=== PATIENT | male | born 1980 | race Caucasian/White ===

== ENCOUNTER 2023-08-30 14:41 | Inpatient (IN) | payer OTHER ==
[2023-08-30 15:14] VITALS: BMI 21.2
[2023-08-30] MEDS ORDERED: LOPERAMIDE HCL 2 MG CAPSULE PO PRN (16:12)
[2023-08-30] MEDS ORDERED: POLYETHYLENE GLYCOL (HEALTHYLAX) 3350 17 GM PACKET PO PRN (16:12)
[2023-08-30] MEDS ORDERED: METHOCARBAMOL 500 MG TABLET PO PRN (16:12)
[2023-08-30] MEDS ORDERED: BENZONATATE 200 MG CAPSULE PO PRN (16:12)
[2023-08-30] MEDS ORDERED: MAG HYDROX/AL HYDROX/SIMETH 30 ML UNIT-DOSE CUP PO PRN (16:12)
[2023-08-30] MEDS ORDERED: NALOXONE HCL (KLOXXADO) 8 MG SPRAY NS PRN (16:12)
[2023-08-30] MEDS ORDERED: BENZOCAINE/MENTHOL (CHLORASEPTIC ) LOZENGE MM PRN (16:12)
[2023-08-30] MEDS ORDERED: NALOXONE HCL 0.4 MG/ML VIAL IM PRN (16:12)
[2023-08-30] MEDS ORDERED: guaiFENesin 600 MG TABLET.ER (FP) PO PRN (16:12)
[2023-08-30] MEDS ORDERED: DICYCLOMINE HCL 10 MG CAPSULE PO PRN (16:12)
[2023-08-30] MEDS ORDERED: hydrOXYzine PAMOATE 25 MG CAPSULE (FP) PO PRN (16:12)
[2023-08-30] MEDS ORDERED: IBUPROFEN 600 MG TABLET (FP) PO PRN (16:12)
[2023-08-30] MEDS ORDERED: ONDANSETRON *ODT* 4 MG TABLET SL PRN (16:12)
[2023-08-30] MEDS ORDERED: MAGNESIUM HYDROX 2400MG/30ML ORAL SUSPENSION 30 ML CUP PO PRN (16:12)
[2023-08-30] MEDS ORDERED: IBUPROFEN 400 MG TABLET (FP) PO PRN (16:12)
[2023-08-30] MEDS ORDERED: ACETAMINOPHEN 325 MG TABLET (FP) PO PRN (16:12)
[2023-08-30] MEDS ORDERED: BISMUTH SUBSALICYLATE 524 MG/30 ML PO PRN (16:12)
[2023-08-30] MEDS: PRENATAL VITAMINS W/ FOLIC ACID TABLET (FP) PO SCH (18:08)
[2023-08-30] MEDS: diazePAM 5 MG TABLET PO SCH ×2 (18:09→22:18)
[2023-08-30] MEDS: diazePAM 5 MG TABLET PO PRN (18:12)
[2023-08-30] MEDS: THIAMINE HCL 100 MG TABLET (FP) PO SCH (22:18)
[2023-08-30] MEDS: MELATONIN 5 MG TABLETS PO SCH (22:20)
[2023-08-31] MEDS: diazePAM 5 MG TABLET PO SCH ×4 (05:47→22:11)
[2023-08-31] MEDS: PRENATAL VITAMINS W/ FOLIC ACID TABLET (FP) PO SCH (10:15)
[2023-08-31 10:46] LABS: CHLORIDE 110 mmol/L (98-107); POTASSIUM 3.9 mmol/L (3.5-5.1); SODIUM 144 mmol/L (136-145)
[2023-08-31 10:56] LABS: HEMATOCRIT 38.1 % (35.4-49); HEMOGLOBIN 13.3 GM/dL (11.7-16.9); MCH 33.5 pg (25.7-33.7); MCHC 34.8 g/dl (32.0-35.9); MEAN CELL VOLUME 96.2 fl (80-96); MEAN PLT VOLUME 8.3 fl (7.5-11.1); PLATELET COUNT 177 10^3/uL (134-434); RBC 3.96 M/mm3 (4.00-5.60); RDW 12.4 % (11.9-15.9); WHITE BLOOD COUNT 3.9 K/mm3 (4.0-10.0)
[2023-08-31 11:01] LABS: CALCIUM 9.3 mg/dL (8.5-10.1)
[2023-08-31 11:02] LABS: ALBUMIN 3.2 g/dl (3.4-5.0); ANION GAP 5 mmol/L (4-13); BLOOD UREA NITROGEN 12.5 mg/dL (7-18); CO2 29 mmol/L (21-32); GLUCOSE,RANDOM 84 mg/dL (74-106)
[2023-08-31 11:05] LABS: CREATININE 0.9 mg/dL (0.55-1.3); SGOT/AST 28 U/L (15-37); SGPT/ALT 51 U/L (13-61)
[2023-08-31 11:06] LABS: BILIRUBIN,TOTAL 0.3 mg/dL (0.2-1)
[2023-08-31 11:07] LABS: TOT PROT 5.9 g/dl (6.4-8.2)
[2023-08-31 11:08] LABS: ALK PHOS 43 U/L (45-117)
[2023-08-31] MEDS ORDERED: GABAPENTIN 400 MG CAPSULE PO ONE (19:39)
[2023-08-31] MEDS: NICOTINE POLACRILEX 2 MG LOZENGE BC PRN (20:37)
[2023-08-31] MEDS: THIAMINE HCL 100 MG TABLET (FP) PO SCH (22:11)
[2023-08-31] MEDS: MELATONIN 5 MG TABLETS PO SCH (22:12)
[2023-09-01] MEDS: diazePAM 5 MG TABLET PO PRN ×5 (01:31→21:27)
[2023-09-01] MEDS: NICOTINE POLACRILEX 2 MG LOZENGE BC PRN ×3 (01:32→18:42)
[2023-09-01] MEDS: P-EPHED 60MG/TRIPROLIDI 2.5MG TABLET PO PRN ×3 (01:45→20:09)
[2023-09-01] MEDS: diazePAM 5 MG TABLET PO SCH ×3 (05:15→22:42)
[2023-09-01] MEDS ORDERED: GABAPENTIN 400 MG CAPSULE PO ONE (09:19)
[2023-09-01] MEDS: PRENATAL VITAMINS W/ FOLIC ACID TABLET (FP) PO SCH (09:54)
[2023-09-01] MEDS: GABAPENTIN 400 MG CAPSULE PO SCH ×2 (13:26→22:04)
[2023-09-01] MEDS: MELATONIN 5 MG TABLETS PO SCH (22:04)
[2023-09-01] MEDS: THIAMINE HCL 100 MG TABLET (FP) PO SCH (22:04)
[2023-09-02] MEDS: diazePAM 5 MG TABLET PO PRN ×2 (01:29→07:40)
[2023-09-02] MEDS: NICOTINE POLACRILEX 2 MG LOZENGE BC PRN ×2 (03:08→05:18)
[2023-09-02] MEDS: GABAPENTIN 400 MG CAPSULE PO SCH (05:15)
[2023-09-02] MEDS ORDERED: diazePAM 5 MG TABLET PO SCH (06:00)
[2023-09-02 09:17] VITALS: PULSE 75; RESP 18; TEMP 97.7
[2023-09-02 09:18] VITALS: BP 106/64
[2023-09-02] MEDS: PRENATAL VITAMINS W/ FOLIC ACID TABLET (FP) PO SCH (09:54)
[2023-09-03] MEDS ORDERED: diazePAM 5 MG TABLET PO ONE (06:00)
== END 2023-09-02 10:25 | disposition home or self-care (01) | DRG 775 ==
LOC: YASAS 14:41 → Y6N 17:42
PROVIDERS: ADMIT Allergy & Immunology; ATTEND Psychiatry & Neurology Pain Medicine
PROC: HZ2ZZZZ Detoxification Services for Substance Abuse Treatment (ICD-10-PCS; principal; 2023-08-30)
DX: F10.230 Alcohol dependence with withdrawal, uncomplicated (principal); F13.230 Sedative, hypnotic or anxiolytic dependence with withdrawal, uncomplicated; F17.210 Nicotine dependence, cigarettes, uncomplicated; F10.280 Alcohol dependence with alcohol-induced anxiety disorder; F41.9 Anxiety disorder, unspecified; R76.11 Nonspecific reaction to tuberculin skin test without active tuberculosis
CPT/HCPCS: 36415; 80053; 80307; 82140; 85027; 86780; 87635; 93005; 93010

== ENCOUNTER 2024-02-26 11:27 | Inpatient (IN) | payer OTHER ==
[2024-02-26] MEDS ORDERED: guaiFENesin 600 MG TABLET.ER (FP) PO PRN (15:24)
[2024-02-26] MEDS ORDERED: LOPERAMIDE HCL 2 MG CAPSULE PO PRN (15:24)
[2024-02-26] MEDS ORDERED: ONDANSETRON *ODT* 4 MG TABLET SL PRN (15:24)
[2024-02-26] MEDS ORDERED: hydrOXYzine PAMOATE 25 MG CAPSULE (FP) PO PRN (15:24)
[2024-02-26] MEDS ORDERED: DICYCLOMINE HCL 10 MG CAPSULE PO PRN (15:24)
[2024-02-26] MEDS ORDERED: METHOCARBAMOL 500 MG TABLET PO PRN (15:24)
[2024-02-26] MEDS ORDERED: MAG HYDROX/AL HYDROX/SIMETH 30 ML UNIT-DOSE CUP PO PRN (15:24)
[2024-02-26] MEDS ORDERED: PRENATAL VITAMINS W/ FOLIC ACID TABLET (FP) PO ONE (16:41)
[2024-02-26] MEDS: PRENATAL VITAMINS W/ FOLIC ACID TABLET (FP) PO SCH (16:43)
[2024-02-26] MEDS: diazePAM 5 MG TABLET PO SCH (17:37)
[2024-02-26] MEDS: BACLOFEN 10 MG TABLET (FP) PO ONE (22:50)
[2024-02-27] MEDS: IBUPROFEN 400 MG TABLET (FP) PO PRN (10:32)
[2024-02-27 12:08] LABS: POTASSIUM 4.5 mmol/L (3.5-5.1)
[2024-02-27 12:11] LABS: HEMATOCRIT 38.9 % (35.4-49); HEMOGLOBIN 13.7 GM/dL (11.7-16.9); MCH 33.6 pg (25.7-33.7); MCHC 35.3 g/dl (32.0-35.9); MEAN CELL VOLUME 95.4 fl (80-96); PLATELET COUNT 219 10^3/uL (134-434); RBC 4.08 M/mm3 (4.00-5.60); RDW 12.7 % (11.9-15.9); WHITE BLOOD COUNT 4.9 K/mm3 (4.0-10.0)
[2024-02-27 12:31] LABS: CALCIUM 9.1 mg/dL (8.5-10.1)
[2024-02-27 12:32] LABS: ALBUMIN 3.4 g/dl (3.4-5.0); BLOOD UREA NITROGEN 14.8 mg/dL (7-18)
[2024-02-27 12:36] LABS: BILIRUBIN,TOTAL 0.5 mg/dL (0.2-1); TOT PROT 6.2 g/dl (6.4-8.2)
[2024-02-27] MEDS: diazePAM 5 MG TABLET PO PRN (14:26)
[2024-02-27] MEDS: BACLOFEN 10 MG TABLET (FP) PO SCH (15:46)
[2024-02-27] MEDS: MELATONIN 5 MG TABLETS PO ONE (22:13)
[2024-02-28] MEDS: diazePAM 5 MG TABLET PO SCH (06:11)
[2024-02-28] MEDS: GABAPENTIN 400 MG CAPSULE PO SCH (13:15)
[2024-02-28] MEDS: BACLOFEN 10 MG TABLET (FP) PO SCH (14:30)
[2024-02-28] MEDS: NICOTINE POLACRILEX 4 MG GUM BUC PRN (22:08)
[2024-02-28] MEDS: MELATONIN 5 MG TABLETS PO PRN (22:41)
[2024-02-29] MEDS: diazePAM 5 MG TABLET PO SCH (06:03)
[2024-02-29] MEDS: diazePAM 5 MG TABLET PO ONE ×2 (10:03→21:03)
[2024-02-29] MEDS: SUVOREXANT 10 MG TABLET PO PRN (22:00)
[2024-03-01] MEDS: diazePAM 5 MG TABLET PO ONE ×2 (01:58→05:27)
[2024-03-01 06:48] VITALS: BP 105/60; PULSE 80; RESP 17; TEMP 98
== END 2024-03-01 09:18 | disposition home or self-care (01) | DRG 775 ==
LOC: YASAS 11:27 → Y3N 16:33
PROVIDERS: ADMIT Allergy & Immunology; ATTEND Surgery
PROC: HZ2ZZZZ Detoxification Services for Substance Abuse Treatment (ICD-10-PCS; principal; 2024-02-26)
DX: F10.230 Alcohol dependence with withdrawal, uncomplicated (principal); F13.20 Sedative, hypnotic or anxiolytic dependence, uncomplicated; F17.210 Nicotine dependence, cigarettes, uncomplicated; F19.280 Other psychoactive substance dependence with psychoactive substance-induced anxiety disorder; F19.24 Other psychoactive substance dependence with psychoactive substance-induced mood disorder; F41.9 Anxiety disorder, unspecified; M54.50 Low back pain, unspecified; G89.29 Other chronic pain; Z86.11 Personal history of tuberculosis
CPT/HCPCS: 36415; 71045-TC-FY; 80053; 80305; 80307; 85027; J0475